=== PATIENT | female | born 1985 | race African-American/Black ===

== ENCOUNTER 2019-11-01 12:33 | Emergency (ER) | payer SELFPAY | END 2019-11-01 13:00 | disposition left against medical advice (07) | LOC: ER 12:33 | DX: R45.851 Suicidal ideations (principal); Z53.21 Procedure and treatment not carried out due to patient leaving prior to being seen by health care provider ==

== ENCOUNTER 2019-11-06 00:56 | Emergency (ER) | payer MEDICAID ==
[~2019-11-06] VITALS: Ht 160 cm; Wt 49.1 kg
[2019-11-06 02:26] LABS: BASO % 0 % (0-3); EOS # 0.1 x10^3/uL (0.0-0.7); EOS % 1 % (0-3); HEMATOCRIT 42.5 % (36.0-47.0); HEMOGLOBIN 14.2 g/dL (12.0-15.5); LYMPH # 2.4 x10^3/uL (1.0-4.8); LYMPH % 34 % (24-48); MEAN CORPUSCULAR HEMOGLOBIN 31 pg (25-35); MEAN CORPUSCULAR HGB CONC 33 g/dL (31-37); MEAN CORPUSCULAR VOLUME 93 fL (79-100); MONO # 0.3 x10^3/uL (0.0-1.1); MONO % 5 % (0-9); NEUT # 4.2 x10^3uL (1.8-7.7); NEUT % 61 % (31-73); PLATELET COUNT 307 x10^3/uL (140-400); RED CELL DISTRIBUTION WIDTH 14.2 % (11.5-14.5)
[2019-11-06 02:27] LABS: CREATININE 0.9 mg/dL (0.6-1.0); GFR 86.7; POTASSIUM 3.8 mmol/L (3.5-5.1)
[2019-11-06 02:34] LABS: ALBUMIN/GLOBULIN RATIO 0.9 (1.0-1.7); TOTAL BILIRUBIN 0.3 mg/dL (0.2-1.0); TOTAL PROTEIN 8.3 g/dL (6.4-8.2)
[2019-11-06 02:43] LABS: LIPASE 130 U/L (73-393)
[2019-11-06] MEDS ORDERED: ZIPRASIDONE IM 20 MG VIAL. IM ONE ×2 (02:44→02:45)
[2019-11-06] MEDS ORDERED: MIDAZOLAM HCL PF 5 MG/5 ML VIAL. IM ONE (03:15)
[2019-11-06] MEDS ORDERED: diphenhydrAMINE 50 MG/ML VIAL IM ONE (03:15)
[2019-11-06 03:26] LABS: BARBITURATES NEG (NEG); BENZODIAZEPINES NEG (NEG); CANNABINOIDS NEG (NEG); COCAINE NEG (NEG); METHADONE NEG (NEG); OPIATES NEG (NEG); PHENCYCLIDINE NEG (NEG)
[2019-11-06 03:31] LABS: AMPHETAMINE/METHAMPHETAMINE NEG (NEG)
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
[2019-11-06 05:21] LABS: ACETAMIN < 2.0 mcg/mL (10-30); SALIC 4.2 mg/dL (2.8-20.0)
[2019-11-06 06:32] VITALS: BP 97/54
--- NOTE | 2019-11-06 07:07 | RAD ---
Single view chest dated 11/06/2019. No comparison available. CLINICAL INDICATION: Pain. Views. FINDINGS: Single supine AP view of the chest was performed. Heart and mediastinal contours are within normal limits. Lungs are clear. No consolidation or pleural effusion. No pneumothorax. No apparent acute bony abnormality. IMPRESSION: No acute findings. Electronically signed by: Meek Victor MD (11/06/2019 7:04 AM) [id number]
[2019-11-06] MEDS ORDERED: IV NORMAL SALINE 1,000ML 1,000 ML IV ONE (07:45)
== END 2019-11-06 14:15 | disposition home or self-care (01) ==
LOC: ER 00:56
DX: T43.222A Poisoning by selective serotonin reuptake inhibitors, intentional self-harm, initial encounter (principal); S61.301A Unspecified open wound of left index finger with damage to nail, initial encounter; S00.81XA Abrasion of other part of head, initial encounter; F32.9 Major depressive disorder, single episode, unspecified; F10.129 Alcohol abuse with intoxication, unspecified; R45.1 Restlessness and agitation; Y90.8 Blood alcohol level of 240 mg/100 ml or more; Y08.89XA Assault by other specified means, initial encounter; Y93.89 Activity, other specified; Y92.89 Other specified places as the place of occurrence of the external cause; Y99.8 Other external cause status
CPT/HCPCS: 36415; 71045; 80053; 80307; 80329; 81025; 82550; 83690; 85025; 96360; 96361; 96372; 99285; G0480; J1200; J2250; J3486; J7030

== ENCOUNTER 2020-03-05 13:42 | Emergency (ER) | payer MEDICAID ==
[~2020-03-05] VITALS: Ht 160 cm; Wt 52.0 kg
[2020-03-05] MEDS ORDERED: FAMOTIDINE 20 MG/2 ML VIAL ONE (13:55)
[2020-03-05] MEDS ORDERED: methylPREDNISolone SOD SUCC PF 125 MG/2 ML VIAL. ONE (13:55)
--- NOTE | 2020-03-05 13:55 | PHYS DOC ---
Past History Past Medical History: Cancer, Depression, Other Additional Past Medical Histor: CERVICAL CANCER Past Surgical History: Other Additional Past Surgical Histo: R SHOULDER, CANCER SX Alcohol Use: Occasionally Drug Use: None General Adult EDM: Chief Complaint: ALLERGIC REACTION HPI: HPI: Patient is a 34-year-old female who arrives via EMS with a chief complaint of allergic reaction. Patient had some spicy seasoning on her crab and noticed swelling and some difficulty talking as well as a rash on her face. Patient received 50 mg of Benadryl prior to arrival and symptoms are somewhat improved. Patient denies any significant trouble breathing nausea vomiting or diarrhea. Patient has had crab before but has sensitive reactions to spicy foods. Patient denies any recent illnesses such as fever, chills, cough, vomiting or diarrhea. Review of Systems: Review of Systems: Constitutional: Denies fever or chills Eyes: Denies change in visual acuity HENT: Denies nasal congestion or sore throat complains of swelling to the lips Respiratory: Denies cough or shortness of breath Cardiovascular: Denies chest pain or edema GI: Denies abdominal pain, nausea, vomiting, bloody stools or diarrhea : Denies dysuria Musculoskeletal: Denies back pain or joint pain Integument: Complains of facial rash Neurologic: Denies headache, focal weakness or sensory changes Endocrine: Denies polyuria or polydipsia Lymphatic: Denies swollen glands Psychiatric: Denies depression or anxiety Current Medications: Current Meds: Current Medications Medications (Trade) Dose Ordered Sig/Aldair Start Time Stop Time Status Last Admin Dose Admin Epinephrine HCl (EPINEPHrine AMPULE) 0.3 mg 1X ONCE 03/05/20 14:00 03/05/20 14:01 UNV Famotidine (Pepcid Vial) 20 mg 1X ONCE 03/05/20 14:00 03/05/20 14:01 UNV Methylprednisolone Sodium Succinate (SOLU-Medrol 125MG VIAL) 125 mg 1X ONCE 03/05/20 14:00 03/05/20 14:01 UNV Sodium Chloride 1,000 ml @ 1,000 mls/hr 1X ONCE 03/05/20 14:00 03/05/20 14:59 UNV Allergies: Allergies: Allergies Coded Allergies Type Severity Reaction Last Updated Verified hydrocodone Allergy Unknown "I ACT CRAZY" 11/06/19 Yes Physical Exam: PE: Constitutional: Well developed, well nourished, no acute distress, non-toxic appearance. [] HENT: Normocephalic, atraumatic, bilateral external ears normal, mild swelling to the lips. Oropharynx is clear no significant angioedema of the tongue nose normal. [] Mild hoarse voice. Eyes: PERRLA, EOMI, conjunctiva normal, no discharge. [] Neck: Normal range of motion, no tenderness, supple, no stridor. [] No meningeal signs Cardiovascular:Heart rate regular rhythm, no murmur [] Lungs & Thorax: Bilateral breath sounds clear to auscultation [] Abdomen: Bowel sounds normal, soft, no tenderness, no masses, no pulsatile masses. [] Skin: Warm, dry, no erythema, faint uticarial rash on the face Back: No tenderness, no CVA tenderness. [] Extremities: No tenderness, no cyanosis, no clubbing, ROM intact, no edema. [] Neurologic: Alert and oriented X 3, normal motor function, normal sensory function, no focal deficits noted. [] Psychologic: Affect normal, judgement normal, mood normal. [] Current Patient Data: Vital Signs: Vital Signs Date Time Temp Pulse Resp B/P (MAP) Pulse Ox O2 Delivery O2 Flow Rate FiO2 03/05/20 14:35 93 18 114/84 (94) 97 Room Air 03/05/20 13:47 98.3 EKG: EKG: [] Radiology/Procedures: Radiology/Procedures: [] Heart Score: Risk Factors: Risk Factors: DM, Current or recent (<one month) smoker, HTN, HLP, family history of CAD, obesity. Risk Scores: Score 0 - 3: 2.5% MACE over next 6 weeks - Discharge Home Score 4 - 6: 20.3% MACE over next 6 weeks - Admit for Clinical Observation Score 7 - 10: 72.7% MACE over next 6 weeks - Early Invasive Strategies Course & Med Decision Making: Course & Med Decision Making Pertinent Labs and Imaging studies reviewed. (See chart for details) [] Patient reassessed at 2:45 PM with improvement of her voice and improved swelling, patient feels much better. Patient reassessed at 3:39 PM and clinically stable. 34-year-old female presents with allergic reaction with primarily angioedema of her lips. On multiple reassessments patient is clinically stable and improved. Patient wants for couple hours in the ER and remained stable. Patient will go home on steroids, antihistamines and given EpiPen to take as needed. Evelyn Disclaimer: Evelyn Disclaimer: This electronic medical record was generated, in whole or in part, using a voice recognition dictation system. Departure Departure: Impression: Primary Impression: Allergic reaction Additional Impression: Angioedema of lips Disposition: 01 DC HOME SELF CARE/HOMELESS Condition: STABLE Referrals: PCP,THA (PCP) [facility] [address] [place] [address] [facility] [address] [place] [address] [facility] [address] Patient Instructions: Angioedema, Hives Additional Instructions: EMERGENCY DEPARTMENT GENERAL DISCHARGE INSTRUCTIONS THANK YOU for coming to [facility] Emergency Department (ED) today and trusting us with your care. We trust that you had a positive experience in our Emergency Department. If you wish to speak to the department Management you can contact the emergency department at YOUR FOLLOW UP INSTRUCTIONS ARE FOLLOWS: Do you have a private doctor? If you do not have a private doctor, please ask for a resource list of physicians or clinics that may be able to assist you with follow up care. The Emergency Physician has interpreted your x-rays. The X-ray specialist will also review them. If there is a change in the findings you will be notified in 48 hours when at all possible. A lab test or lab culture may have been done, your results will be reviewed and you will be notified if you need a change in treatment. ADDITIONAL INSTRUCTIONS AND INFORMATION Your care today has been supervised by a physician who is specially trained in emergency care. Many problems require more than one evaluation for a complete diagnosis and treatment. We recommend that you schedule your follow up appointment as recommended to ensure complete treatment of your illness or injury. If you are unable to obtain follow up care and continue to have a problem, or if your condition worsens we recommend that you return to the ED. We are not able to safely determine your condition over the phone nor are we able to give sound medical advice over the phone. For these safety reasons, if you call for medical advice we will ask you to come to the ED for further evaluation If you have any questions regarding these discharge instructions please call the ED at SAFETY INFORMATION In the interest of safety, wellness, and injury prevention; we encourage you to wear your seatbelt, if you smoke; quit smoking, and we encourage your family to use protective helmet for bicycling and other sporting events that present an increased risk for head injury. IF YOUR SYMPTOMS WORSEN OR NEW SYMPTOMS DEVELOP, OR YOU HAVE CONCERNS ABOUT YOUR CONDITION; OR IF YOUR CONDITION WORSENS WHILE YOU ARE WAITING FOR YOUR FOLLOW UP APPOINTMENT; EITHER CONTACT YOUR PRIMARY CARE DOCTOR, THE PHYSICIAN WHOSE NAME AND NUMBER YOU WERE GIVEN, OR RETURN TO THE ED IMMEDIATELY. Scripts Diphenhydramine Hcl (BENADRYL) 25 Mg Capsule 2 CAP PO QHS for swelling for 30 Days, #60 CAP 0 Refills Prov: TRI VILLAFUERTE MD 03/05/20 Prednisone (PREDNISONE) 20 Mg Tablet 60 MG PO DAILY for allergic reaction for 5 Days, #15 TAB Prov: TRI VILLAFUERTE MD 03/05/20 Epinephrine (EPIPEN 2-BRIAN) 0.3 Mg/0.3 Ml Auto.injct 1 SYR IM ONCE for swelling for 1 Day, #1 PACKET 0 Refills Prov: TRI VILLAFUERTE MD 03/05/20 Loratadine (CLARITIN) 10 Mg Tablet 1 TAB PO DAILY for allergy symptoms for 10 Days, #10 TAB 0 Refills Prov: TRI VILLAFUERTE MD 03/05/20 TRI VILLAFUERTE MD Mar 05, 2020 13:55
[2020-03-05] MEDS ORDERED: FAMOTIDINE 20 MG/2 ML VIAL IVP ONE (14:00)
[2020-03-05] MEDS ORDERED: methylPREDNISolone SOD SUCC PF 125 MG/2 ML VIAL. IV ONE (14:00)
[2020-03-05] MEDS ORDERED: IV NORMAL SALINE 1,000ML 1,000 ML IV ONE (14:00)
[2020-03-05] MEDS ORDERED: DIPH25CA58 PO (15:41)
[2020-03-05] MEDS ORDERED: LORA10TA68 PO (15:41)
[2020-03-05] MEDS ORDERED: EPIN0.3A4 IM (15:41)
[2020-03-05] MEDS ORDERED: PRED20TA PO (15:41)
[2020-03-05 15:59] VITALS: BP 96/54
== END 2020-03-05 16:03 | disposition home or self-care (01) ==
LOC: ER 13:42
DX: T78.40XA Allergy, unspecified, initial encounter (principal); T78.3XXA Angioneurotic edema, initial encounter; X58.XXXA Exposure to other specified factors, initial encounter; Z88.5 Allergy status to narcotic agent
CPT/HCPCS: 96361; 96372; 96374; 96375; 99284; J0171; J2930; J3490; J7030

== ENCOUNTER 2020-06-11 22:52 | Emergency (ER) | payer MEDICAID ==
[~2020-06-11] VITALS: Ht 160 cm; Wt 52.0 kg
[~2020-06-11 22:52] MED LIST: DIPH25CA58 PO; EPIN0.3A4 IM; LORA10TA68 PO; PRED20TA PO
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
[2020-06-11 23:30] VITALS: BP 134/73
[2020-06-11 23:54] LABS: BARBITURATES NEG (NEG); BENZODIAZEPINES NEG (NEG); BILIRUBIN,URINE NEG (NEG); CANNABINOIDS NEG (NEG); CLARITY,URINE CLEAR; COCAINE NEG (NEG); COLOR,URINE YELLOW; GLUCOSE,URINE NEG (NEG); METHADONE NEG (NEG); NITRITE,URINE NEG (NEG); OPIATES NEG (NEG); PHENCYCLIDINE NEG (NEG); UROBILINOGEN,URINE 0.2 mg/dL (0.2 mg/dL)
[2020-06-11 23:55] LABS: BACTERIA,URINE FEW /HPF (0-FEW); RBC,URINE OCC /HPF (0-2); SQUAMOUS EPITHELIAL CELL,UR OCC /LPF
[2020-06-11 23:56] LABS: AMPHETAMINE/METHAMPHETAMINE NEG (NEG)
== END 2020-06-11 23:30 | disposition home or self-care (01) ==
LOC: ER 22:52
DX: F41.9 Anxiety disorder, unspecified (principal); F32.9 Major depressive disorder, single episode, unspecified; Z88.5 Allergy status to narcotic agent
CPT/HCPCS: 36415; 80307; 81001; 81025; 99283

== ENCOUNTER 2020-08-19 13:01 | Emergency (ER) | payer MEDICAID ==
[~2020-08-19] VITALS: Ht 160 cm; Wt 52.0 kg
[2020-08-19 13:10] VITALS: BP 112/66
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
== END 2020-08-19 13:29 | disposition left against medical advice (07) ==
LOC: EEVIPCON 13:01 → ER 13:01
DX: T74.21XA Adult sexual abuse, confirmed, initial encounter (principal); F32.9 Major depressive disorder, single episode, unspecified; Y07.03 Male partner, perpetrator of maltreatment and neglect
CPT/HCPCS: 99283